=== PATIENT | female | born 1965 | race Caucasian/White ===

== ENCOUNTER → 2020-06-24 06:43 | Outpatient (CLI) | payer MEDICARE, SELFPAY ==
--- NOTE | 2020-06-24 | DI.MRI.S_ITS ---
PROCEDURE: MR ABDOMEN WO/W CON INDICATIONS: Unspecified abdominal pain TECHNIQUE: Coronal HASTE, axial 2D FLASH in- and [id number]; axial breath-hold T2 FSE. Dynamic axial VIBE during the administration of contrast; post-contrast coronal VIBE or 2D FLASH with fat saturation from the hepatic dome to the iliac crests. Optional diffusion weighted imaging and ADC may be performed. COMPARISON: [facility], US, US PELVIC COMPLETE WITH TRANSVAGINAL, 06/03/2020, 11:01. [facility], CT, CT ABDOMEN PELVIS WITH CONTRAST, 05/30/2020, 22:02. FINDINGS: Image quality: Excellent. Lung bases: No basal pleural effusions. Heart size is normal. Solid organs: Liver is normal in size and enhancement. No focal lesion. A few T2 hyperintense cysts. Gallbladder is unremarkable. Biliary system is non dilated. Pancreas is normal in morphology. Spleen is normal in size and enhancement. No adrenal nodules. Both kidneys demonstrate normal size and enhancement, without hydronephrosis. Nodes and vessels: No retroperitoneal or mesenteric adenopathy by size criteria. Aorta and inferior vena cava are normal in size. Bowel and peritoneum: Unenhanced bowel loops are normal in caliber. Prominent stool in the colon. Scattered colonic diverticuli. The appendix is not identified. No free fluid. No restricted diffusion in this region. The pelvis is not included in the field of view. Bones and soft tissues: No ventral hernias. Bone marrow is normal in overall signal. IMPRESSION: 1. No source for abdominal pain is identified. The appendix is not identified. No free fluid is seen. 2. Diverticulosis. 3. Unremarkable gallbladder. If concern for occult appendicitis consider follow-up CT abdomen and pelvis with IV contrast. Dictated by: Simon Perez M.D. on 06/24/2020 at 9:04 Approved by: Simon Perez M.D. on 06/24/2020 at 9:29
== END ==
PROVIDERS: PCP Family Medicine; Referring Provider Nurse Practitioner Family; Visit Provider Nurse Practitioner Family
DX: K57.90 Diverticulosis of intestine, part unspecified, without perforation or abscess without bleeding (principal)
CPT/HCPCS: 74182